=== PATIENT | male | born 1985 | race Caucasian/White ===

== ENCOUNTER 2024-01-13 12:50 | Emergency (ER) | payer SELFPAY ==
[~2024-01-13] VITALS: Ht 170.2 cm; Wt 74.8 kg
[2024-01-13 12:55] VITALS: TEMP 97.8
[2024-01-13] MEDS ORDERED: LIDOCAINE HCL 2% JELLY 5 ML TUBE TOP ONE (13:30)
[2024-01-13] MEDS ORDERED: LIDOCAINE VISC 2% SOLN 15 ML UDC ONE (13:41)
[2024-01-13] MEDS ORDERED: DIPHENHYDRAMINE HCL INJ 50 MG/ML VIAL ONE (13:52)
[2024-01-13] MEDS: SODIUM CHLORIDE 0.9% 1000ML 1,000 ML IV SCH (13:58)
[2024-01-13] MEDS: METOCLOPRAMIDE HCL 10 MG/2ML VIAL IV ONE (13:59)
[2024-01-13] MEDS: KETOROLAC TROMETHAMINE 30 MG/ML VIAL IV STA (14:00)
[2024-01-13] MEDS: DIPHENHYDRAMINE HCL 25 MG CAP PO ONE (14:00)
[2024-01-13 14:11] LABS: BASOPHILS % 0.4 % (0.0-1.0); EOSINOPHILS % 0.3 % (0.0-6.0); HEMATOCRIT 47.1 % (38.2-49.6); HEMOGLOBIN 15.9 g/dL (14.0-18.0); LYMPHOCYTES # (AUTO) 3.4 (1.0-3.2); LYMPHOCYTES % 33.4 % (18.0-39.1); MEAN CORPUSCULAR HEMOGLOBIN 31.4 pg (28-32); MEAN CORPUSCULAR HGB CONC 33.8 g/dL (31-35); MEAN CORPUSCULAR VOLUME 92.9 fL (81-99); MONOCYTES # (AUTO) 0.9 (0.2-0.8); MONOCYTES % 8.5 % (4.4-11.3); NEUTROPHILS # (AUTO) 5.8 (2.1-6.9); NEUTROPHILS % 57.2 % (38.7-80.0); PLATELET COUNT 331 x10e3/uL (140-360); RED BLOOD COUNT 5.07 x10e6/uL (4.3-5.7); RED CELL DISTRIBUTION WIDTH 12.2 % (11.7-14.4); WHITE BLOOD COUNT 10.18 x10e3/uL (4.8-10.8)
[2024-01-13 14:40] LABS: ALBUMIN 4.3 g/dL (3.5-5.0); ALBUMIN/GLOBULIN RATIO 1.1 (0.8-2.0); ANION GAP 15.6 mmol/L (8-16); CALCIUM 9.8 mg/dL (8.4-10.2); CREATININE, SERUM 0.84 mg/dL (0.72-1.25); POTASSIUM 3.6 mmol/L (3.5-5.1); TOTAL PROTEIN 8.2 g/dL (6.5-8.1)
[2024-01-13] MEDS ORDERED: IOPAMIDOL 370 MG/ML 100 ML INFUS..BTL INJ ONE (15:12)
[2024-01-13] MEDS ORDERED: SODIUM CHLORIDE 0.9% 100 ML ONE (15:12)
[2024-01-13] MEDS: MAGNESIUM SULF 1GRAM/DEXTROSE 100 ML IV ONE (15:56)
[2024-01-13] MEDS: DEXAMETHASONE SOD PHOS 10 MG/1 ML VIAL IV ONE (16:37)
[2024-01-13 17:10] VITALS: PULSE 74; RESP 16; O2SAT 100
== END 2024-01-13 17:15 | disposition home or self-care (01) ==
LOC: ER 13:19
DX: R51.9 Headache, unspecified (principal); M54.2 Cervicalgia; H53.8 Other visual disturbances
CPT/HCPCS: 36415; 70450; 70496; 70498; 80053; 85025; 99284; J1100; J1200; J1885; J2003; J2765; J3475; J7030; J7050; Q9967

== ENCOUNTER 2024-02-20 16:17 | Emergency (ER) | payer SELFPAY ==
[~2024-02-20] VITALS: Ht 172.7 cm; Wt 77.1 kg
[2024-02-20] MEDS ORDERED: KETOROLAC TROMETHAMINE 30 MG/ML VIAL ONE (17:39)
[2024-02-20 17:46] LABS: INFLUENZA A AG NEGATIVE (NEGATIVE)
[2024-02-20 17:47] LABS: CORONAVIRUS COVID-19 AG NEGATIVE (NEGATIVE); INFLUENZA B AG NEGATIVE (NEGATIVE)
[2024-02-20] MEDS: ONDANSETRON HCL INJ 2MG/ML 2ML 2 MG/ML VIAL IV STA (17:50)
[2024-02-20] MEDS: KETOROLAC TROMETHAMINE 30 MG/ML VIAL IV STA (17:50)
[2024-02-20] MEDS: SODIUM CHLORIDE 0.9% 1000ML 1,000 ML IV ONE (17:51)
[2024-02-20 18:10] LABS: BASOPHILS % 0.1 % (0.0-1.0); EOSINOPHILS # (AUTO) 0.1 (0.0-0.4); EOSINOPHILS % 0.3 % (0.0-6.0); HEMATOCRIT 45.4 % (38.2-49.6); HEMOGLOBIN 15.5 g/dL (14.0-18.0); MEAN CORPUSCULAR HEMOGLOBIN 32.1 pg (28-32); MEAN CORPUSCULAR HGB CONC 34.1 g/dL (31-35); MONOCYTES # (AUTO) 0.8 (0.2-0.8); MONOCYTES % 4.3 % (4.4-11.3); NEUTROPHILS # (AUTO) 15.5 (2.1-6.9); NEUTROPHILS % 88.8 % (38.7-80.0); PLATELET COUNT 355 x10e3/uL (140-360); RED BLOOD COUNT 4.83 x10e6/uL (4.3-5.7); RED CELL DISTRIBUTION WIDTH 11.9 % (11.7-14.4); WHITE BLOOD COUNT 17.41 x10e3/uL (4.8-10.8)
[2024-02-20 18:21] LABS: INR 0.87; PROTHROMBIN TIME 12.4 seconds (11.9-14.5)
[2024-02-20 18:22] LABS: PARTIAL THROMBOPLASTIN TIME 28.3 seconds (23.8-35.5)
[2024-02-20 18:31] LABS: ALBUMIN 4.2 g/dL (3.5-5.0); ALBUMIN/GLOBULIN RATIO 1.3 (0.8-2.0); ANION GAP 18.4 mmol/L (8-16); BILIRUBIN,TOTAL 0.9 mg/dL (0.2-1.2); CREATININE, SERUM 0.82 mg/dL (0.72-1.25); TOTAL PROTEIN 7.5 g/dL (6.5-8.1)
[2024-02-20 18:46] LABS: POTASSIUM 3.4 mmol/L (3.5-5.1)
[2024-02-20 21:01] VITALS: PULSE 95; RESP 18; TEMP 98.7
[2024-02-20] MEDS: ACETAMIN/BUTALBITAL/CAFFEINE TAB PO ONE (21:07)
[2024-02-20] MEDS ORDERED: ONDANSETRON ODT4 MG SL (21:08)
[2024-02-20] MEDS ORDERED: FIORICET 50-301 EACH PO (21:08)
[2024-02-20] MEDS ORDERED: PENICILLIN V P500 MG PO (21:08)
[2024-02-20 21:10] LABS: AMPHETAMINES SCREEN,URINE NEGATIVE (NEGATIVE); BENZODIAZEPINES SCREEN,URINE NEGATIVE (NEGATIVE); COCAINE SCREEN,URINE NEGATIVE (NEGATIVE); OPIATES SCREEN,URINE NEGATIVE (NEGATIVE); PHENCYCLIDINE SCREEN,URINE NEGATIVE (NEGATIVE)
[2024-02-20 21:11] LABS: CANNABINOIDS SCREEN,URINE POSITIVE (NEGATIVE); METHADONE SCREEN, URINE NEGATIVE (NEGATIVE)
[2024-02-20 21:28] VITALS: BP 131/93; PULSE 95; RESP 18; TEMP 98.7; O2SAT 99
== END 2024-02-20 21:34 | disposition home or self-care (01) ==
LOC: ER 20:57
DX: R51.9 Headache, unspecified (principal); K04.7 Periapical abscess without sinus; K08.9 Disorder of teeth and supporting structures, unspecified; R11.2 Nausea with vomiting, unspecified; Z11.52 Encounter for screening for COVID-19
CPT/HCPCS: 36415; 70450; 80053; 80307; 85025; 85610; 85730; 87428; 99284; J1885; J2405; J7030